=== PATIENT | male | born 1995 | race African-American/Black ===

== ENCOUNTER 2019-01-23 02:12 | Emergency (ER) | payer MEDICAID ==
[~2019-01-23] VITALS: Ht 190.5 cm; Wt 127.0 kg
[2019-01-23 05:00] VITALS: BP 100/42
== END 2019-01-23 05:14 | disposition home or self-care (01) ==
LOC: ER 02:12
DX: R07.89 Other chest pain (principal); F10.129 Alcohol abuse with intoxication, unspecified; Y90.0 Blood alcohol level of less than 20 mg/100 ml; J45.909 Unspecified asthma, uncomplicated
CPT/HCPCS: 93005; 99283

== ENCOUNTER 2024-10-13 02:56 | Emergency (ER) | payer MEDICAID ==
[~2024-10-13] VITALS: Ht 188 cm; Wt 87.0 kg
[2024-10-13 02:57] VITALS: BP 142/101; PULSE 98; RESP 16; TEMP 36.7; O2SAT 99
[2024-10-13] MEDS: LIDOCAINE HCL/EPINEPHRINE 1%-EPI 1:100,000 20ML VIAL INFIL ONE (04:15)
[2024-10-13] MEDS: BACITRACIN ZINC OINT UDPKT TOP ONE (04:15)
[2024-10-13] MEDS: TETANUS AND DIPHTHERIA TOX/PF 0.5ML SYR (ADULT) IM ONE (04:45)
== END 2024-10-13 07:07 | disposition home or self-care (01) ==
LOC: ER 02:56
DX: S01.81XA Laceration without foreign body of other part of head, initial encounter (principal); S09.90XA Unspecified injury of head, initial encounter; J45.909 Unspecified asthma, uncomplicated; W22.03XA Walked into furniture, initial encounter; Y93.89 Activity, other specified; Y92.89 Other specified places as the place of occurrence of the external cause; Y99.8 Other external cause status
CPT/HCPCS: 70450; 70486; 90714; 12013; 90471; 99285; J2004; Z7610 ×2

== ENCOUNTER 2024-11-28 10:02 | Inpatient (IN) | payer MEDICAID ==
[~2024-11-28] VITALS: Ht 193 cm; Wt 82.6 kg
[2024-11-28 10:15] VITALS: O2SAT 100
[2024-11-28 10:58] LABS: BASOPHILS % 0.4 % (0.0-2.0); EOSINOPHILS % 0.3 % (0.0-5.0); HEMATOCRIT. 44.0 % (42.0-52.0); HEMOGLOBIN. 15.1 g/dL (14.0-18.0); LYMPHOCYTES % 9.3 % (20.0-50.0); MEAN PLATELET VOLUME 7.1 fl (7.4-10.4); MONOCYTES % 10.9 % (2.0-8.0); NEUTROPHILS % 79.1 % (40.0-76.0); PLATELET 444 x1000/uL (130-400); RED BLOOD CELL COUNT 4.52 mill/uL (4.7-6.1); RED CELL DISTRIBUTION WIDTH 14.0 % (11.6-14.6)
[2024-11-28 11:16] LABS: CREATININE 0.9 mg/dL (0.6-1.3); UREA NITROGEN BLOOD < 5 mg/dL (9-23)
[2024-11-28] MEDS: ONDANSETRON HCL 4MG/2ML INJ IV ONE (11:52)
[2024-11-28] MEDS: MORPHINE SULFATE 4 MG/ML INJ (FOR IV/IM USE) IV ONE (11:52)
[2024-11-28] MEDS: KCL 20MEQ/100ML PREMIX 100 ML IV SCH (12:15)
[2024-11-28] MEDS: SODIUM CHLORIDE 0.9% 1,000 ML IV ONE (12:21)
[2024-11-28 15:00] VITALS: BP 155/110; PULSE 96; RESP 19; TEMP 36.2; O2SAT 96
[2024-11-28] MEDS ORDERED: ONDANSETRON HCL 4MG/2ML INJ IV PRN (15:15)
[2024-11-28 15:30] VITALS: BP 155/110; PULSE 96; RESP 19; TEMP 36.3
[2024-11-28] MEDS: GABAPENTIN 100MG CAPSULE PO SCH (17:07)
[2024-11-28] MEDS: KCL 20MEQ/100ML PREMIX 100 ML IV ONE (17:09)
[2024-11-28] MEDS: SODIUM CHLORIDE 0.9% 1,000 ML IV SCH (17:10)
[2024-11-28] MEDS: ACETAMINOPHEN 325MG TABLET PO PRN (17:29)
[2024-11-28 20:00] VITALS: BP 140/106; PULSE 110; RESP 20; TEMP 36.5; O2SAT 100
[2024-11-28] MEDS: HYDROCODONE/ACETAMINOPHEN 10/325MG TABLET PO PRN (20:34)
[2024-11-28] MEDS ORDERED: NALOXONE HCL 0.4MG/ML VIAL IV PRN (20:45)
[2024-11-28 21:36] LABS: CLARITY URINE CLEAR (CLEAR); COLOR URINE YELLOW (YELLOW); SPECIFIC GRAVITY URINE 1.008 (1.005-1.030)
[2024-11-28 21:37] LABS: GLUCOSE URINE NEGATIVE (NEGATIVE); KETONES URINE 1+ (NEGATIVE); LEUKOCYTE ESTERASE URINE NEGATIVE (NEGATIVE); NITRITE URINE NEGATIVE (NEGATIVE); OCCULT BLOOD URINE NEGATIVE (NEGATIVE); PH URINE >=9.0 (4.5-8.0); PROTEIN URINE NEGATIVE (NEGATIVE); UROBILINOGEN URINE 4.0 E.U./dL (0.2-1.0)
[2024-11-28 21:43] LABS: *AMPHETAMINES SCREEN URINE NEGATIVE (NEGATIVE); *BARBITURATES SCREEN URINE NEGATIVE (NEGATIVE); *BENZODIAZEPINES SCREEN URINE NEGATIVE (NEGATIVE); *COCAINE SCREEN URINE NEGATIVE (NEGATIVE); CANNABINOID URINE SCREEN PRESUMPTIVE POSITIVE (NEGATIVE); ECSTASY MDMA SCREEN URINE NEGATIVE (NEGATIVE); METHADONE URINE SCREEN NEGATIVE (NEGATIVE); OPIATES URINE SCREEN PRESUMPTIVE POSITIVE (NEGATIVE); PHENCYCLIDINE URINE SCREEN NEGATIVE (NEGATIVE)
[2024-11-28 21:50] LABS: BACTERIA URINE NONE SEEN; RBC URINE NONE SEEN /hpf (0-2); SQUAMOUS EPITHELIAL CELL URINE RARE /lpf (RARE/1+); WBC URINE 0-2 /hpf (0-2)
[2024-11-28] MEDS: THIAMINE HCL 100MG TABLET PO SCH (22:10)
[2024-11-28] MEDS: MULTIVITAMINS,THER W-MINERALS TABLET PO SCH (22:10)
[2024-11-28] MEDS: FOLIC ACID 1MG TABLET PO SCH (22:10)
[2024-11-28] MEDS: SODIUM CHL 0.9% + KCL 20MEQ/L 1,000 ML IV SCH (22:11)
[2024-11-28] MEDS: METRONIDAZOLE 500 MG PREMIX 100 ML IV SCH (22:11)
[2024-11-29] VITALS: BP 126/94; PULSE 18; RESP 18; TEMP 36.5; O2SAT 99
[2024-11-29 00:17] LABS: ASPARTATE AMINOTRANSFERASE 14 IU/L (<34); BILIRUBIN DIRECT 0.5 mg/dL (<=3.0); BILIRUBIN TOTAL 1.4 mg/dL (0.1-1.0); PROTEIN TOTAL 7.7 g/dL (6.0-8.3)
[2024-11-29 00:56] LABS: HEPATITIS A AB IGM NEGATIVE (Negative)
[2024-11-29 00:57] LABS: HEPATITIS B CORE AB IGM NEGATIVE (Negative); HEPATITIS C AB NON REACTIVE (Neg) (Negative)
[2024-11-29 04:00] VITALS: BP 125/89; PULSE 99; RESP 19; TEMP 36.7; O2SAT 100
[2024-11-29 08:00] VITALS: BP 127/91; PULSE 72; RESP 17; TEMP 36.4; O2SAT 100
[2024-11-29] MEDS: PANTOPRAZOLE SODIUM 40 MG/VIAL IV SCH (08:11)
== END 2024-11-29 09:50 | disposition left against medical advice (07) | DRG 282 ==
LOC: ER 10:06 → EDBEDREQTM 14:19 → EDBEDREQ 14:19 → 6EST 14:56
PROVIDERS: ADMIT Internal Medicine; ATTEND Internal Medicine
DX: K85.20 Alcohol induced acute pancreatitis without necrosis or infection (principal); E87.1 Hypo-osmolality and hyponatremia; E87.6 Hypokalemia; Z53.29 Procedure and treatment not carried out because of patient's decision for other reasons; K86.0 Alcohol-induced chronic pancreatitis; Z79.899 Other long term (current) drug therapy
CPT/HCPCS: 36415; 74176; 80048; 80076; 80305; 81003; 82150; 83605; 84132; 85025; 86705; 86709; 87340; 99285; J2270; J2405; J2470; J3480; J3490; J7030